=== PATIENT | female | born 1965 | race Caucasian/White ===

== ENCOUNTER 2020-02-14 09:45 | Emergency (ER) | payer OTHER, SELFPAY ==
[2020-02-14 11:55] LABS: PLATELET COUNT 239 x10^3mcL (130-400)
[2020-02-14 12:15] LABS: T3 TOTAL 0.71 ng/mL
[2020-02-14 13:06] VITALS: BP 131/82
[2020-02-14 13:11] LABS: CALCIUM 8.3 mg/dL (8.5-10.1); CARBON DIOXIDE 24.7 mmol/L (21-32); CHLORIDE SERUM 102 mmol/L (98-107); CREATININE SERUM 0.6 mg/dL (0.6-1.0); GFR1 > 60 mL/min; GLUCOSE SERUM 105 mg/dL (74-106); POTASSIUM SERUM 3.5 mmol/L (3.5-5.1); SODIUM SERUM 139 mmol/L (136-145)
[2020-02-14 13:22] LABS: ALKALINE PHOSPHATASE 96 U/L (46-116); BILIRUBIN TOTAL 1.1 mg/dL (0.20-1.00); MAGNESIUM 1.9 mg/dL (1.8-2.4)
[2020-02-14 13:24] LABS: ALBUMIN 3.3 g/dL (3.4-5.0); CHOLESTEROL 245 mg/dL (<200); HDL CHOLESTEROL 19 mg/dL (40-60); TOTAL PROTEIN, SERUM 5.6 g/dL (6.4-8.2)
[2020-02-14 13:59] LABS: FREE T4 0.95 ng/dL (0.76-1.46)
[2020-02-14 14:06] LABS: FREE THYROXINE INDEX 1.7 ug/dL (1.4-4.5); T4(THYROXINE) 4.6 ug/dL (4.7-13.3)
[2020-02-14 14:25] LABS: microscopic required? YES; urine erythrocyte NEGATIVE (NEGATIVE)
[2020-02-14 14:31] LABS: ALT/SGPT 65 U/L (14-59); AST/SGOT 122 U/L (15-37)
== END 2020-02-14 15:36 | disposition home or self-care (01) ==
LOC: ED 09:45
PROVIDERS: Emergency Medicine
DX: R53.1 Weakness (principal); E86.0 Dehydration; Z88.0 Allergy status to penicillin; Z88.2 Allergy status to sulfonamides; Z98.890 Other specified postprocedural states; Z20.828 Contact with and (suspected) exposure to other viral communicable diseases
CPT/HCPCS: 84439; J2405; J7030; Q0092; U0003-CS

== ENCOUNTER 2020-02-26 08:34 | Emergency (ER) | payer OTHER ==
[~2020-02-26] VITALS: Ht 170.2 cm; Wt 78.9 kg
[2020-02-26 08:45] VITALS: Ht 170.2 cm; Wt 78.9 kg
[2020-02-26 10:19] LABS: BASOPHIL % 0.5 % (0-2); PLATELET COUNT 233 x10^3mcL (130-400)
[2020-02-26 10:23] LABS: microscopic required? YES; urine erythrocyte TRACE (NEGATIVE)
[2020-02-26 10:56] LABS: RED CELL DISTRIBUTION WIDTH 15.9 % (11.5-14.5)
[2020-02-26 13:31] LABS: CALCIUM 8.3 mg/dL (8.5-10.1); CHLORIDE SERUM 106 mmol/L (98-107); CREATININE SERUM 0.7 mg/dL (0.6-1.0); GFR1 > 60 mL/min; GLUCOSE SERUM 111 mg/dL (74-106); POTASSIUM SERUM 3.1 mmol/L (3.5-5.1); SODIUM SERUM 143 mmol/L (136-145)
[2020-02-26 13:36] LABS: ALKALINE PHOSPHATASE 111 U/L (46-116); ALT/SGPT 35 U/L (14-59); AST/SGOT 42 U/L (15-37); BILIRUBIN TOTAL 1.4 mg/dL (0.20-1.00); CHOLESTEROL 183 mg/dL (<200); CHOLESTEROL/HDL RATIO 12.2; HDL CHOLESTEROL 15 mg/dL (40-60); TOTAL PROTEIN, SERUM 5.5 g/dL (6.4-8.2); TRIGLYCERIDES 749 mg/dL (<150)
[2020-02-26 14:14] VITALS: BP 129/87
== END 2020-02-26 14:14 | disposition home or self-care (01) ==
LOC: ED 08:34
PROVIDERS: Specialist
DX: N39.0 Urinary tract infection, site not specified (principal); R19.7 Diarrhea, unspecified; R11.2 Nausea with vomiting, unspecified; Z98.890 Other specified postprocedural states; Z98.51 Tubal ligation status; Z88.0 Allergy status to penicillin; Z88.2 Allergy status to sulfonamides
CPT/HCPCS: J1885; J1956; J7030; Q0162

== ENCOUNTER 2020-07-17 23:15 | Emergency (ER) | payer MEDICAID ==
[~2020-07-17] VITALS: Ht 170.2 cm; Wt 78.7 kg
[2020-07-18 00:36] VITALS: BP 101/63; Ht 170.2 cm; Wt 78.7 kg
== END 2020-07-18 03:10 | disposition home or self-care (01) ==
LOC: ED 23:15
DX: K76.0 Fatty (change of) liver, not elsewhere classified (principal); Z88.0 Allergy status to penicillin; Z88.2 Allergy status to sulfonamides; Z98.51 Tubal ligation status; Z98.890 Other specified postprocedural states
CPT/HCPCS: Q0162